=== PATIENT | female | born 1990 | race Two or more races ===

== ENCOUNTER 2025-02-02 16:01 | Emergency (ER) | payer OTHER ==
[~2025-02-02] VITALS: Ht 160 cm; Wt 68.0 kg
[2025-02-02 17:57] VITALS: BP 104/67; O2SAT 100
[2025-02-02] MEDS ORDERED: ONDANSETRON HCL 2 MG/ML VIAL ONE (18:27)
[2025-02-02] MEDS ORDERED: FAMOTIDINE/PF 20 MG/2 ML VIAL ONE (18:28)
[2025-02-02] MEDS ORDERED: LACTOBACILLUS ACIDOPHILUS 1 CAP CAP PO ONE ×2 (18:28→18:30)
[2025-02-02] MEDS ORDERED: FAMOTIDINE/PF 20 MG/2 ML VIAL IV ONE (18:30)
[2025-02-02] MEDS ORDERED: ONDANSETRON HCL 2 MG/ML VIAL IV ONE (18:30)
[2025-02-02] MEDS ORDERED: 0.9 % SODIUM CHLORIDE 1,000 ML IV ONE (18:30)
[2025-02-02 18:55] LABS: BASO % 0.3 % (0.1-1.2); EOS # 0.07 (0.04-0.54); EOS % 0.7 % (0.7-7.0); LYMPH # 2.21 (1.18-3.74); LYMPH % 21.8 % (19.3-53.1); MEAN PLATELET VOLUME 10.50 fl (9.4-12.4); MONO # 0.73 (0.24-0.82); MONO % 7.2 % (4.7-12.5); NEUT # 7.06 (1.56-6.13); NEUT % 69.7 % (34.0-71.1); RED CELL DISTRIBUTION WIDTH 12.8 % (11.6-14.4)
[2025-02-02 19:21] LABS: ALT/SGPT 41.0 U/L (12-78); AST/SGOT 47.0 U/L (15-37); BILIRUBIN TOTAL 0.54 mg/dL (0.3-1.2); BUN CREA RATIO 10.0 (7.0-25.0); CREATININE SERUM 0.73 mg/dL (0.55-1.02); GFR 92.39; GLOBULINA 3.4 G/DL (2.4-3.5); GLUCOSE FASTING 87.0 mg/dL (65-100); OSMOLALITY SERUM 280.0 MOSM/KG (275-295)
[2025-02-02] MEDS ORDERED: PEPCID AC20 MG PO (23:25)
[2025-02-02] MEDS ORDERED: INTESTINEX680 M1 PO (23:25)
[2025-02-02] MEDS ORDERED: ONDANSETRON ODT4 MG PO (23:25)
== END 2025-02-03 02:43 ==
LOC: ER 16:01
PROVIDERS: General Practice
DX: K52.89 Other specified noninfective gastroenteritis and colitis (principal); R11.2 Nausea with vomiting, unspecified